=== PATIENT | male | born 1990 | race Caucasian/White ===

== ENCOUNTER 2020-05-21 18:08 | Emergency (ER) | payer BC ==
[2020-05-21 18:25] VITALS: BP 128/81; PULSE 77; RESP 16; TEMP 101.9
[2020-05-21] MEDS ORDERED: ACETAMINOPHEN TAB 500 MG TAB PO STA (19:17)
--- NOTE | 2020-05-21 19:20 | ED ---
General Adult HPI - General Chief complaint: Fever Stated complaint: diarrhea Time Seen by Provider: 05/21/20 18:53 Source: patient, RN notes reviewed Mode of arrival: ambulatory Limitations: no limitations - History of Present Illness Initial comments: cash is a pleasant 29-year-old male presenting to the emergency department with complaints of diarrhea. Onset of symptoms was 4:30 this morning. Patient states he has had one episode of diarrhea. Patient also complains of minimal nasal congestion. Patient did notice fever prior to coming to the emergency department. Patient denies any abdominal discomfort. No nausea or vomiting. Patient states he was worried that he should be checked for James before going to work. Review of Systems ROS Statement: Those systems with pertinent positive or pertinent negative responses have been documented in the HPI. ROS Other: All systems not noted in ROS Statement are negative. Constitutional: Reports: fever, chills Eyes: Denies: eye pain ENT: Reports: congestion. Denies: ear pain Respiratory: Denies: cough Cardiovascular: Denies: chest pain Endocrine: Denies: fatigue Gastrointestinal: Reports: diarrhea ( episode). Denies: abdominal pain, nausea, vomiting Genitourinary: Denies: dysuria Musculoskeletal: Denies: back pain Skin: Denies: rash Neurological: Denies: weakness Past Medical History Past Medical History: Asthma History of Any Multi-Drug Resistant Organisms: None Reported Past Surgical History: Orthopedic Surgery Additional Past Surgical History / Comment(s): steel leora in (L) femur Past Psychological History: No Psychological Hx Reported Smoking Status: Never smoker Past Alcohol Use History: Occasional Past Drug Use History: None Reported General Exam Limitations: no limitations General appearance: alert, in no apparent distress Head exam: Present: normocephalic Eye exam: Present: normal appearance Neck exam: Present: normal inspection Respiratory exam: Present: normal lung sounds bilaterally Cardiovascular Exam: Present: regular rate, normal rhythm GI/Abdominal exam: Present: soft. Absent: distended, tenderness, guarding, rebound, rigid Extremities exam: Present: normal inspection. Absent: pedal edema, calf tenderness Neurological exam: Present: alert Psychiatric exam: Present: normal affect, normal mood Skin exam: Present: normal color Course Vital Signs 05/21/20 18:22 Temperature 101.9 F H Pulse Rate 77 Respiratory 16 Rate Blood Pressure 128/81 O2 Sat by Pulse 99 Oximetry Medical Decision Making - Medical Decision Making patient is offered imaging and lab work and fluids however refuses stating he only needs testing for work. Patient is advised she likely does have chronic virus and to self quarantined pending test results. Disposition Clinical Impression: Fever Disposition: HOME SELF-CARE Condition: Stable Instructions (If sedation given, give patient instructions): Fever in Adults (ED) Additional Instructions: lease follow-up with primary care physician in the next day or 2 for recheck. Return for uncontrolled fever, weakness, uncontrolled diarrhea, abdominal pain, worsening symptoms or other concerns. Assuming that you have coronavirus until test results are available. Please self quarantined until that time. No work. [id number] vitamin C, vitamin D, and zinc until symptoms resolve. Is patient prescribed a controlled substance at d/c from ED?: No Referrals: Benedict Brown MD [STAFF PHYSICIAN] - 1-2 days Time of Disposition: 19:20
== END 2020-05-21 19:35 | disposition home or self-care (01) ==
LOC: EC 18:08
DX: R50.9 Fever, unspecified (principal); R19.7 Diarrhea, unspecified; Z20.828 Contact with and (suspected) exposure to other viral communicable diseases
CPT/HCPCS: 99283; U0003